=== PATIENT | female | born 1985 | race Caucasian/White ===

== ENCOUNTER 2020-08-31 01:08 | Inpatient (IN) | payer BC ==
[~2020-08-31] VITALS: Ht 167.6 cm; Wt 73.6 kg
[2020-08-31] VITALS (41 sets, daily range): BP systolic 104–138; BP diastolic 53–92; PULSE 70–100; TEMP 98.1–99.6
--- NOTE | 2020-08-31 00:55 | NUR ---
PT ARRIVED TO UNIT AMBULATORY WITH SPOUSE WITH CONCERNS OF POSSIBLE SROM AND CONTRACTIONS. PT ORIENTED TO ROOM, CHANGED INTO GOWN. VS OBTAINED, EFMX2 APPLIED, SVE PERFORMED, CLEAR FLUID VISUALIZED WITH EXAM. WITH NOTIFY PHYSICIAN OF PT ARRIVAL.
[2020-08-31] MEDS ORDERED: PRENATAL TABLET PO (01:23)
[2020-08-31] MEDS ORDERED: NATURAL IRON65 MG PO (01:23)
[2020-08-31] MEDS ORDERED: VITAMIN C500 MG PO (01:24)
[2020-08-31 02:27] LABS: BASO % 0.3 % (0.0-2.0); EOS # 0.1 (0.0-0.7); EOS % 0.6 % (0-4.0); GRAN % 74.9 % (42.2-75.2); HEMATOCRIT 32.5 % (37.0-47.0); HEMOGLOBIN 11.2 g/dl (12.5-16.0); LYMPH # 1.5 (1.2-3.4); LYMPH % 18.3 % (20.0-51.0); MEAN CELL VOLUME 91 fl (80.0-100.0); MEAN CORPUSCULAR HEMOGLOBIN 32 pg (27.0-31.0); MEAN CORPUSCULAR HGB CONC 35 g/dl (33.0-37.0); MONO # 0.4 (0.1-0.6); MONO % 5.5 % (1.7-9.3); PLATELET COUNT 105 K/mm3 (130-400); RED BLOOD COUNT 3.56 M/mm3 (4.10-5.30)
--- NOTE | 2020-08-31 06:10 | NUR ---
0557- Nj PIERRE CRNA IN ROOM FOR EPIDURAL PLACEMENT. PT SITTING UP AT BEDSIDE, BP SET TO EVERY 5 MINUTES, PULSE OX IN PLACE. 0602- SINGLE SHOT GIVEN BY Nj PIERRE CRNA, PT TOLERATED WELL. 0610- PT REPOSITIONED TO SEMIFOWLERS FOLLOWING EPIDURAL PLACEMENT.
--- NOTE | 2020-08-31 06:23 | NUR ---
LATE DECELERATION INTO THE 90'S. PT REPOSTIONED INTO RIGHT WEDGE. FHT'S INCREASE TO 120'S AFTER 1.5 MINUTES BUT THEN IMMEDIATELY DROPS INTO THE 90'S. SVE OF 6-7/90/-3. REPOSITIONED INTO LEFT LATERAL. FHT'S IN THE 90'S FOR APPROXIMATELY 2 MINUTES. MATERNAL BP DROPPING FROM THE 120'S/70'S INTO THE 100'S/50'S. EPHEDRINE 10MG GIVEN IV AT 0629. BP INCREASED TO 110'S/50'S, FHT'S RETURN TO BASELINE OF 140'S WITH MODERATE VARIABILITY.
--- NOTE | 2020-08-31 06:30 | NUR ---
Bedside report received from Julia Baptiste RN. Plan of care reviewed with patient and spouse who verbalize understaning. Patient resting with call light within reach. Denies any needs at this time.
--- NOTE | 2020-08-31 07:30 | NUR ---
Patient with intermittent late and early decels. Repositioned.
--- NOTE | 2020-08-31 08:26 | NUR ---
Strip Cat I. EFM off. Patient ambulatory in room.
--- NOTE | 2020-08-31 09:54 | NUR ---
0954- SVE AL/+1. Dr. Gibson updated. See physician notification. Patient repositioned. 1036- SVE C/+1. Patient reports feeling increased pressure, and urge to push. 1039- Dr. Gibson updated. See physician notification. RN remains at bedside. 1046- Dr. Gibson at bedside for delivery. Patient repositioned in footplates. 1049- Patient begins to push with contractions with Dr. Gibson at bedside. Strong maternal effort noted. 1104- Variable FHR decel to 80's. 1107- FHR audible 80bmp. Dr. Gibson reviews vacuum with patient and family who verbalize understanding. Vacuum applied to occiput by Dr. Gibson. Patient continues to push with contractions as traction is applied via vacuum by Dr. Gibson. Strong maternal effort noted. 1108- Pop off. 1109- Vacuum reapplied to occiput by Dr. Gibson and traction applied as patient continues to push with contractions. VAVD of viable male infant at this time. Nuchal cord x1 reduced on perineum. [place] to mothers chest where nares and mouth bulb suctioned by Dr. Gibson. Cord clamped x2 and cut by Dr. Gibson. Care of assumed by Consuelo Mendoza RN. Cord gases collected. 2nd degree perineal laceration repaired by Dr. Gibson. 1118- Spontaneous and intact delivery of placenta. Pitocin started at 333ml/hr per protocol. MEU by Dr. Gibson. 1120- Patient repositioned in bed. Dayanna care provided. Free flow noted. Fundus firm, midline. Moderate amount of lochia expressed. Dr. Gibson at bedside and notified. Will continue to monitor. Plan of care and safety precautions reviewed with patient who verbalizes understanding. Anesthesia at bedside and epidural pump off. See doctor dictation, anesthesia record, and nurses notes.
--- NOTE | 2020-08-31 14:00 | NUR ---
1400- Patient assisted to edge of bed. Denies lightheadedness or dizziness. Abmulatory to bathroom. Voids without difficulty. Esther care provided, clean gown on, and esther pads changed. To room 214 via WC. Oriented to room and plan of care. Denies questions or needs. Resting with call light within reach.
[2020-08-31] MEDS ORDERED: MOTRIN 800800 MG/TAB PO (14:19)
[2020-09-01 00:10] VITALS: BP 109/70; PULSE 83; TEMP 98.1
[2020-09-01 04:09] VITALS: BP 110/66; PULSE 79; TEMP 97.9
[2020-09-01 08:02] VITALS: BP 112/59; PULSE 79; TEMP 98
--- NOTE | 2020-09-01 09:10 | NUR ---
Initial visit; Parents thanked [employer] for offering congratulations and God's blessings for the of their son. [employer] thanked family for choosing [facility].
--- NOTE | 2020-09-01 13:40 | NUR ---
Discharge instructions given. Parents verbalize understanding. Bands matched and hugs tag removed.
== END 2020-09-01 13:50 | disposition home or self-care (01) | DRG 806 ==
LOC: LDRO 01:08 → LDR 01:08 → LDRO 01:38 → LDR 01:39 → OB 14:00
PROVIDERS: Obstetrics & Gynecology; ADMIT Obstetrics & Gynecology
PROC: 10D07Z6 Extraction of Products of Conception, Vacuum, Via Natural or Artificial Opening (ICD-10-PCS; principal; 2020-08-31)
PROC: 0KQM0ZZ Repair Perineum Muscle, Open Approach (ICD-10-PCS; 2020-08-31)
DX: O24.429 Gestational diabetes mellitus in childbirth, unspecified control (principal); O99.12 Other diseases of the blood and blood-forming organs and certain disorders involving the immune mechanism complicating childbirth; Z37.0 Single live birth; O99.824 Streptococcus B carrier state complicating childbirth; O76 Abnormality in fetal heart rate and rhythm complicating labor and delivery; D69.6 Thrombocytopenia, unspecified; O34.211 Maternal care for low transverse scar from previous cesarean delivery; O99.02 Anemia complicating childbirth; D64.9 Anemia, unspecified; O99.284 Endocrine, nutritional and metabolic diseases complicating childbirth; E28.2 Polycystic ovarian syndrome; O69.1XX0 Labor and delivery complicated by cord around neck, with compression, not applicable or unspecified; O70.1 Second degree perineal laceration during delivery; Z3A.39 39 weeks gestation of pregnancy
CPT/HCPCS: J2540; J2590; J2795; J7120